=== PATIENT | female | born 1990 | race Caucasian/White ===

== ENCOUNTER 2017-12-24 06:31 | Emergency (ER) | payer OTHER, BC ==
[~2017-12-24] VITALS: Ht 170.2 cm; Wt 115.5 kg
[2017-12-24 07:48] VITALS: BP 154/94
== END 2017-12-24 07:49 | disposition home or self-care (01) ==
LOC: EME 06:31
DX: S06.0X0A Concussion without loss of consciousness, initial encounter (principal); M54.5 Low back pain; M25.562 Pain in left knee; V49.9XXA Car occupant (driver) (passenger) injured in unspecified traffic accident, initial encounter
CPT/HCPCS: 99281; 99284